=== PATIENT | female | born 1970 | race Caucasian/White ===

== ENCOUNTER 2017-06-05 09:49 | Emergency (ER) | payer OTHER ==
[~2017-06-05] VITALS: Ht 170.2 cm; Wt 82.5 kg
[2017-06-05 09:50] VITALS: Ht 170.2 cm; Wt 82.5 kg
[2017-06-05] MEDS ORDERED: ONDANSETRON (ODT) 4 MG TAB ODT STA (10:30)
[2017-06-05] MEDS ORDERED: KETOROLAC 30 MG INJ IM STA (10:30)
[2017-06-05] MEDS ORDERED: morphine 10 MG INJ IM ONE (10:30)
--- NOTE | 2017-06-05 10:33 | ERD ---
ER Documentation Chief Complaint Date/Time DATE: 06/05/17 Chief Complaint Right neck/right upper extremity pain HPI The patient is a 46-year-old female who presents the emergency department with complaint of right lateral neck pain radiating down the right upper extremity with intermittent paresthesias. The patient reports her symptoms initially began 1 week ago, after a trip to and from [place]. She is uncertain if she performed any abnormal movements to contribute to the pain. She reports an aching pain to the right lateral neck, that extends down the right upper extremity. She admits intermittent paresthesias, but otherwise denies any numbness or weakness of the extremity. The pain is worse with certain movements of the neck and right upper extremity. She reports improvement in the pain at rest. She denies any visual changes, neck weakness, neck stiffness , fevers, sweats, chills, nausea, vomiting, chest pain, palpitations or shortness of breath. Denies history of IV drug use. Denies any recent falls, injury or trauma to the neck or extremity. The patient reports a history of chronic neck and low back pain, for which she is under the care of a stained glass painter. She has a follow-up appointment with her stained glass painter tomorrow. 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 She rates her current pain at 7 out of 10, but notes that she has not yet taken any medication for pain relief. No other complaints at this time. ROS All systems reviewed and are negative except as per history of present illness. Medications Home Meds Active Scripts Cyclobenzaprine Hcl* (Cyclobenzaprine Hcl*) 10 Mg Tablet, 10 MG PO TID, #15 TAB Prov:KRYSTLE FORDE PA-C 06/05/17 Acetaminophen* (Tylenol*) 325 Mg Tablet, 1 TAB PO Q6 Y for PAIN AND OR ELEVATED TEMP, #20 TAB Prov:KRYSTLE FORDE PA-C 06/05/17 Allergies Allergies: Uncoded Allergies: IBUPROPHEN (Allergy, Intermediate, 06/05/17) PMhx/Soc Medical and Surgical Hx: pt denies Medical Hx, pt denies Surgical Hx Hx Alcohol Use: No Hx Substance Use: No Hx Tobacco Use: No Smoking Status: Never smoker Physical Exam Vitals Vital Signs Date Time Temp Pulse Resp B/P Pulse Ox O2 Delivery O2 Flow Rate FiO2 06/05/17 09:50 98.1 81 18 132/90 99 Physical Exam GENERAL: Well-developed, well-nourished, female, in no acute distress. Nontoxic. HEENT: Head is normocephalic, atraumatic. No scleral pallor or icterus. Pupils equal, round and reactive to light. Extraocular movements intact. Conjunctiva pink. Moist mucous membranes. NECK: Supple. Tenderness to palpation with palpable muscle spasm to the right paracervical muscles extending into the right trapezius muscle. No midline bony tenderness. No step-offs. No crepitus. No lymphadenopathy. Trachea midline. No nuchal rigidity. No meningismus. Full range of motion. Positive right-sided Spurling maneuver. RESPIRATORY: Lungs are clear to auscultation bilaterally. No rales, rhonchi or wheezing. Equal breath sounds. Normal expiratory effort. No chest wall tenderness. No flail chest. No subcutaneous emphysema. CARDIOVASCULAR: Regular rate and rhythm. S1 and S2 normal. Distal pulses are palpable, 2+ bilaterally. Capillary refill is less than 2 seconds. GASTROINTESTINAL: Abdomen is soft, non-tender, and non-distended. BACK: No midline tenderness. EXTREMITIES: No clubbing, cyanosis, or edema. Normal skin perfusion. Moving all extremities. Muscle tone is normal. No focal swelling or erythema. NEUROLOGIC: The patient is alert, awake, and oriented x 3. No focal neurologic deficits. Motor and sensation grossly intact. INTEGUMENT: Skin is intact. Warm and dry. No rashes, no petechiae present. PSYCHIATRIC: Cooperative; appropriate. Results 24 hrs Current Medications Medications (Trade) Dose Ordered Sig/Alfonso Route PRN Reason Start Time Stop Time Status Last Admin Dose Admin Morphine Sulfate (morphine) 6 mg ONCE ONCE IM 06/05/17 10:30 06/05/17 10:31 DC 06/05/17 10:46 Ketorolac Tromethamine (Toradol) 30 mg ONCE STAT IM 06/05/17 10:30 06/05/17 10:41 DC Ondansetron HCl (Zofran Odt) 4 mg ONCE STAT ODT 06/05/17 10:30 06/05/17 10:31 DC 06/05/17 10:46 Procedures/MDM This is a 46-year-old female presenting to the emergency department with a complaint of right neck pain extending into the right upper extremity with associated radicular symptoms of intermittent paresthesias. The patient had mild tenderness to the right lateral neck, with palpable muscle spasm and a positive Spurling maneuver on physical examination. No evidence of weakness of sensory disturbances. She had a normal neurological examination. No midline cervical spine tenderness. No chest pain or shortness of breath. No fevers, history of IVDU or cancer. The differential diagnosis includes, but is not limited to, cervical strain, DJD, neck injury, torticollis, vertebral artery dissection, entrapped nerve, brachial plexus lesion, cervical spondylosis, disc herniation, carotid artery dissection, cervical spine fracture/dislocation, myelopathy. At this time do not believe that diagnostic imaging is indicated. Patient with no recent falls, injury or trauma, and therefore doubt acute osseous injury. After rest and administration of morphine and Zofran, the patient reports no new complaints and decreased pain. Upon my review and interpretation of the patient's presentation and overall ER course, I believe that the patient's symptoms are most consistent with neck pain with radicular symptoms likely secondary to muscle spasm and cervical radiculopathy. At this time, the patient is in stable condition and therefore can be discharged home with prescriptions for Flexeril with strict return precautions for signs of deteriorating condition or worsening condition. She is advised to follow up with her stained glass painter and primary care provider for further pain relief, reevaluation and further management within the next 2 to 3 days or to return to the ER sooner for any worsening symptoms. I shared my medical decision making with the patient at length and in great detail, and the patient verbally understands and agrees with the plan for further observation and care as an outpatient. At the time of discharge, all questions were answered. Departure Diagnosis: Primary Impression: Muscle spasms of neck Additional Impression: Cervical radiculopathy Condition: Stable Patient Instructions: Neck Spasm, No Trauma, Radiculopathy, Cervical Additional Instructions: Follow up with your PMD/stained glass painter tomorrow for reevaluation and further management. Return to the ED sooner for any new or worsening symptoms. KRYSTLE FORDE PA-C Jun 05, 2017 10:32
[2017-06-05] MEDS ORDERED: ACET325T33 PO (10:41)
[2017-06-05] MEDS ORDERED: CYCL-319 PO (10:42)
== END 2017-06-05 11:03 | disposition home or self-care (01) ==
LOC: FTE 09:49
DX: M62.838 Other muscle spasm (principal); M54.12 Radiculopathy, cervical region
CPT/HCPCS: 96372; J1885; J2270; Z7502; Z7610